=== PATIENT | female | born 1995 ===

== ENCOUNTER 2021-10-24 20:42 | Inpatient (IN) | payer MEDICAID, SELFPAY ==
--- NOTE | ~2021-10-24 | CT_ITS ---
EXAMINATION: CT HEAD WITHOUT CONTRAST CLINICAL INFORMATION: First psychotic episode. COMPARISON: No relevant prior imaging. TECHNIQUE: Contiguous axial imaging was performed from the skull base to vertex without intravenous administration of contrast. This CT examination was performed using dose optimization techniques as appropriate, variously including the following: *Automated exposure control *Adjustment of mA and/or kV according to patient size (this includes techniques or standardized protocols for targeted exams where dose is matched to indication/reason for exam; i.e. extremities or head) *Use of iterative reconstruction technique DLP: 572 mGy-cm FINDINGS: There is no acute intracranial hemorrhage or abnormal extra-axial collection. No intracranial mass effect or midline shift. Lateral and third ventricles are normal. No hydrocephalus. Gtz-white matter differentiation is preserved and there is no evidence of acute territorial infarct. The calvarium and skull base are intact. Mastoid air cells and middle ear cavities are well aerated. No active paranasal sinus disease. CT/CT head/brain wo con IMPRESSION: Normal CT scan of the head.
[2021-10-24 21:10] VITALS: BP 118/73; PULSE 100; RESP 16; TEMP 36.7; O2SAT 98
[2021-10-24] MEDS: hydrOXYzine HCL 25 MG TABLET PO (23:04)
[2021-10-24 23:15] VITALS: BMI 19.7
[2021-10-25] MEDS: traZODone HCL 50 MG TABLET PO (01:38)
--- NOTE | 2021-10-25 02:14 | PC.ADMIT ---
Pt is a 26 year old female admitted to the unit after referral from N at [facility]. Arrived on unit at 2057. Legal status: CV, later signed a 3 day notice which will be up on Friday10/29/20. Medical issues: psoriasis, for which she receives an injection every 3 months (Skyrizi), and a j-pouch which was performed when she was 16 years old for ulcerative colitis. Substance use: pt reports marijuana use, last used 10/19, and infrequent alcohol use. Precipitant, per crisis report: Pt was a walk-in to the ED for symptoms of pressured, tangential speech and disoragnized thinking, as well as paranoia and persecutory delusions. She reportedly also made hypersexualized comments and attempted to elope from the ED multiple times. Pt made paranoid statements, such as that unidentified people would harm her while she is in the hospital and also beliefs that her family was conspiring against her. Pt reported auditory hallucinations all the time and having intrusive thoughts that she could not control . Per pt's mother, there is not prior history of psychosis. Per pt: At the time of admission assessment, pt states that she believes she may have had her first manic episode . She reports having COVID at the beginning of the month, approx. 09/26/21, and felt that she was in a brain fog during that time, then felt ok. She reports not being able to sleep for the last week. Pt states that she freaked out [place] morning, and then does not remember anything , including going to the hospital. She remembers having delusional thoughts, such as that she caused a COVID outbreak and started the omnicron variant. She remembers having auditory hallucinations, but states that was only while she was in the hospital, and although she could understand what they said they didn't make any sense . Pt states that she started feeling better yesterday and feels fine now, though feels tired due to lack of sleep. Pt reports that she has always struggled with anxiety, and has wondered if she should be on medication for it. She denies disturbance in appetite. Denies suicidal thoughts currently or prior to admission. She reports living in [place] where she goes to school, but has been staying with her parents during the holidays; states that she was supposed to go back to [place] today (10/24). During admission assessment pt presents slightly anxious, appears tired, is alert and oriented x4. Her thought process seems logical and linear, she is pleasant and cooperative throughout assessment. She denies any auditory or visual hallucinations at this time, no apparent signs of psychosis. Denies SI/HI. Nurse to nurse completed prior to admission. Treatment plan initiated. Grace Moctezuma APRN notified of admission and orders obtained. Pt placed on 15 minute safety checks, contracts for unit safety and will seek out staff if necessary. Medications: Pt is on a monthly B12 injection, last received 10/18/21. She is also on Skyrizi every 3 months and believes that she might be approx. one month late for the injection. She reports recently having bloodwork done in [place] which was needed in order to refill injection. Pt also reports taking a probiotic and vitamin D daily.
[2021-10-25 07:00] VITALS: BMI 20.2
--- NOTE | 2021-10-25 08:57 | P.CONHOSP_ITS ---
History of Present Illness Data of Consult Service Date: 10/25/21 Primary Care Provider: Unknown Physician HPI Reason for consult: Medical evaluation and management. 26-year-old female with history of ulcerative colitis status post an internal J pouch, she is in remission, h/o psoriasis on Skyrizi every 3 months. She is presently admitted for managment of depression. She has no acute medical issues at this time. She has no covid symptoms, she had covid 1 a week after she got her booster vaccine. She voiced no sucidal ideation. Review of Systems Review of Systems: Gen: no fever Resp: no sob, no cough CV: no chest, no HUGGINS, no leg edema GI: No n/v, no abd pain Neuro: No confusion Yes all other systems are reviewed and are negative [facility] Medical History (Updated 10/25/21 @ 09:04 by Ronak Viramontes MD) Intestinal anastomosis present Psoriasis Pertinent family history: She offer no known family illnesses Social History Household Members: Other Household Members Other:: has apartment in [place] where she goes to school Housing: Apartment Housing Other:: has been staying with family during holidays Do you presently have visiting nurse or other home services: No Patient Tobacco Use Status: Never used Tobacco Use of substances other than those prescribed or required for medical reasons: Yes Substance Use Type: Marijuana Substance Use Frequency: Weekly Last Used Substance: Just Prior to Admission Last Used Substance Other:: last used 10/19/21 Currently Displaying Signs/Symptoms of Drug Intoxication Withdrawal: No Any prior treatment program specific to substance use: No Have you been hit, kicked, punched, or otherwise hurt by someone within the past year? If so, by whom?: No Do you feel safe in your current relationship?: No Current Relationship Is there a partner from a previous relationship who is making you feel unsafe now?: No Are you made to feel afraid or neglected: No Spiritual Healthcare Practices: none identified Tenriism Healthcare Practices: none identified Cultural Healthcare Practices: none identified Advance Directives: No Advance Directives Information Provided: Yes Do you have thoughts of harming others: None Do you have a plan to hurt others: No Plan Recently lost weight without trying: No Eating poorly because of decreased appetite: No Nutrition Risks: No Nutritional Risk Patient : No : No Poor oral hygiene: No Meds Allergies Allergy/AdvReac Type Severity Reaction Status Date / Time No Known Allergies Allergy Unverified 10/24/21 21:10 Active Medications: Current Medications Acetaminophen (Acetaminophen 325 Mg Tablet) 650 mg PO Q6H PRN PRN Reason: Headache/Pain Mild Scale (1-3) Al Hydroxide/Mg Hydroxide (Magnesium Hydrox/Alum Hydrox 30 Ml Oral.Susp) 30 ml PO Q6H PRN PRN Reason: Heartburn/Nausea Hydroxyzine HCl (Hydroxyzine Hcl 25 Mg Tablet) 25 mg PO BEDTIME PRN PRN Reason: Anxiety Last Admin: 10/24/21 23:04 Dose: 25 mg Documented by: Magnesium Hydroxide (Milk Of Magnesia 30 Ml Oral.Susp) 30 ml PO DAILY PRN PRN Reason: Constipation Nicotine Polacrilex (Nicotine Polacrilex 2 Mg Gum) 2 mg BUCCAL Q2H PRN PRN Reason: Nicotine Cravings Trazodone HCl (Trazodone Hcl 50 Mg Tablet) 50 mg PO BEDTIME PRN PRN Reason: Insomnia Last Admin: 10/25/21 01:38 Dose: 50 mg Documented by: Physical Exam Vital Signs and Narrative: Vital Signs: Last Vital Signs Temp 98.0 F 10/24/21 21:10 Pulse 100 10/24/21 21:10 Resp 16 10/24/21 21:10 BP 118/73 10/24/21 21:10 Pulse Ox 98 10/24/21 21:10 BMI result Body Mass Index 19.7 Const: Other: Constitutional: Alert, in no distress, thin Mental Status: Oriented to person, place and time. Respiratory: Clear to auscultation. No wheezing, rales or rhonchi. Cardiovascular: S1 S2 regular. No murmurs, rubs or gallops. Gastrointestinal: normal exam Neurologic: Cranial nerves II-XII grossly intact. No focal neurological def icits. Moves all extremities spontaneously.? Skin: No rashes or lesions.? Musculoskeletal: No cyanosis or clubbing. Psychiatric: Normal mood and affect? Assessment and Plan (1) Depression: Status: Acute 26-year-old female with ulcerative colitis that is in remission, psoriasis that is well controlled. Presently admitted to inpatient psych for depression management. She has no acute medical issues. Plan/recommendation: Continue present care of pharmacological and behavior management. Please call for any new issues. Thanks
--- NOTE | 2021-10-25 09:27 | P.HPPS_ITS ---
Documented by User: Marizol Navarro 10/25/21 14:05 HPI Date of Service: 10/25/21 Chief Complaint: Bipolar I d/o, current or most recent episode with Sources of Information: patient interviewed, chart reviewed and crisis/core team assessment reviewed Additional Sources of Information: [facility]eris [facility] Subjective Notes: Lemons Warning (understands) and 3 Day Narrative: Ms. Howell is a 26 year-old with no prior psychiatric hx other than anxiety who was brought to [facility] by her mother due to pt presenting as increasingly more disorganized, reporting some paranoid delusions towards family, not sleeping. Per [facility] records, pt presented as paranoid, did talk about reassuring others that Glory was not child molester, that she thought her family were against her. In the ED, her utox was positive for cannabis. All other labs including CBC, CMP were unremarkable. On the unit, pt presents as anxious, but much more organized than how she was described in ED. Pt reports she notes in past several weeks she had believed that she was in a reality show about success. She reports not sleeping thinking she could if she did. She reports most of memories of past weeks are very vague. She reports she was hearing voices but couldn't make what they were saying. Pt reports she came from [place], [place] 10/22 to visit family in [facility]. She states even before coming she was not sleeping well and was already thinking she was in a reality show. Pt currently denies AH/VH. She reports feeling confused about what is going on with her. Pt denies previous episode of psychosis. pt denies previous episodes of increased energy, decreased need for sleep, grandiose, psychosis or delusional thinking. She reports having hx of anxiety for which she is receiving outpatient psychotherapy. Pt denies hx of suicidal ideation or homicidal ideation. Per mother, no prior hx f psychosis. Mother reports changes in behavior for the past 2 weeks or more. Mother reports pt presented as paranoid towards family members, not sleeping, poor memory unable to recognize people she had met in past. Mother reports pt has gone through surgical procedures due to ulcerative colitis early on in her life which was difficult for pt. Mother reports that as far as she is aware no hx of suicide attempts. Past Psychiatric History: Inpatient: none OP: therapist in [place] Past medication trials: ativan Suicide attempts: none Medical Evaluation Reviewed: Hospitalist Roya Pending reviewed records sent from [facility]- including CBC (unremarkable), CMP (unremarkable), utox (positive for cannabinoids) pending hospitalist H&P. PMH of ulcerative colitis status post garcía colectomy w/j pouch/ PMFSH Medical History (Updated 10/25/21 @ 13:58 by Marizol Navarro) Intestinal anastomosis present Psoriasis Family History: mother- depression Social History: Parents when pt was in middle school. Pt has younger brother. She moved to [place] for school back in 2012. She reports having close relationship with both parents. Not , no children. works as [employer]. Substance History: reports weekly use of cannabis for some years. She reports drinking socially. She denies any other substance use. Trauma History: reports multiple medical interventions due to ulcerative colitis was traumatic for her. Diagnostics Vital Signs (24Hr): Vital Signs - 24 hr 10/24/21 21:10 Temperature 98.0 F Pulse Rate 100 Respiratory Rate 16 Blood Pressure 118/73 Pulse Oximetry 98 BMI result Body Mass Index 19.7 Labs Labs: Laboratory Results - last 48 hr 10/25/21 10/25/21 10/25/21 11:23 11:23 11:23 Estimat Average Glucose 97 Hemoglobin A1c % 5.0 Triglycerides 83 Cholesterol 151 LDL Cholesterol, Calc 82 HDL Cholesterol 53 Vitamin B12 522 Folate 17.2 TSH 0.42 Meds/Allergies Meds Home Medications Acetaminophen (Acetaminophen 325 Mg Tablet) 650 mg PO Q6H PRN PRN Reason: Headache/Pain Mild Scale (1-3) Last Admin: 10/25/21 21:13 Dose: 650 mg Documented by: Al Hydroxide/Mg Hydroxide (Magnesium Hydrox/Alum Hydrox 30 Ml Oral.Susp) 30 ml PO Q6H PRN PRN Reason: Heartburn/Nausea Hydroxyzine HCl (Hydroxyzine Hcl 25 Mg Tablet) 25 mg PO BEDTIME PRN PRN Reason: Anxiety Last Admin: 10/26/21 00:26 Dose: 25 mg Documented by: Lorazepam (Lorazepam 1 Mg Tablet) 1 mg PO Q4H PRN PRN Reason: Anxiety Last Admin: 10/25/21 23:03 Dose: 1 mg Documented by: Magnesium Hydroxide (Milk Of Magnesia 30 Ml Oral.Susp) 30 ml PO DAILY PRN PRN Reason: Constipation Nicotine Polacrilex (Nicotine Polacrilex 2 Mg Gum) 2 mg BUCCAL Q2H PRN PRN Reason: Nicotine Cravings Risperidone (Risperidone 0.5 Mg Tablet) 0.5 mg PO BID DEVAN Last Admin: 10/26/21 09:06 Dose: 0.5 mg Documented by: Trazodone HCl (Trazodone Hcl 50 Mg Tablet) 50 mg PO BEDTIME PRN PRN Reason: Insomnia Last Admin: 10/26/21 00:25 Dose: 50 mg Documented by: Allergies Allergies Allergy/AdvReac Type Severity Reaction Status Date / Time No Known Allergies Allergy Unverified 10/24/21 21:10 Mental Status Exam Mental Status Exam Narrative: Appearance: thin, casually groomed, fair hygiene in NAD Behavior:cooperative, anxious psychomotor:no agitation or retardation noted Speech:clear, normal rate/rhythm/volume, spontaneous Thought process:mostly linear, no loose associations Thought content:no overt psychosis, worried about recent episode, confused but open to received treatment Mood: good Affect: slightly expensive at times, more withdrawn towards the end SI:none HI:none VH/AH:reports not anymore Delusions:no overt delusional content, but reports thinking she was in reality show Insight/judgment:improving x 2. Memory/cog: alert, oriented x 3. grossly intact to conversational testing but not formally tested. Assessment & Plan Assessment & Plan (1) Psychosis: Status: Acute Code(s): F29 - Unspecified psychosis not due to a substance or known physiological condition Assessment and Plan: Ms. Howell is a 26 year-old woman without psychiatric hx who was brought to [facility] ED due to new onset of paranoid, grandiose delusions of being in reality show, being successful, not sleeping. Utox positive for cannabinoids. Differential diagnosis include first manic episode in Bipolar type 1 Disorder, cannabis induced psychosis or less likely pt recently dx with covid (some cases reported of post covid psychosis). We discussed risks, benefits and alternative treatment options. pt agreed to start low dose of risperidone. PLAN 1. Admit to [facility], 3 day notice, 15 minutes checks for safety 2. Start risperidone 0.5mg po BID, PRN ativan for anxiety. 3. Obtain collateral information 4. Aftercare planning. Reason for continued inpatient stay Substantial Risk for: inability to function Documented by User: Cornelio Eric MD 10/26/21 14:16 HPI Chief Complaint: Bipolar I d/o, current or most recent episode with [facility] Medical History (Updated 10/25/21 @ 13:58 by Marizol Navarro) Intestinal anastomosis present Psoriasis Meds/Allergies Meds Home Medications Acetaminophen (Acetaminophen 325 Mg Tablet) 650 mg PO Q6H PRN PRN Reason: Headache/Pain Mild Scale (1-3) Last Admin: 10/25/21 21:13 Dose: 650 mg Documented by: Al Hydroxide/Mg Hydroxide (Magnesium Hydrox/Alum Hydrox 30 Ml Oral.Susp) 30 ml PO Q6H PRN PRN Reason: Heartburn/Nausea Hydroxyzine HCl (Hydroxyzine Hcl 25 Mg Tablet) 25 mg PO BEDTIME PRN PRN Reason: Anxiety Last Admin: 10/26/21 00:26 Dose: 25 mg Documented by: Lorazepam (Lorazepam 1 Mg Tablet) 1 mg PO Q4H PRN PRN Reason: Anxiety Last Admin: 10/25/21 23:03 Dose: 1 mg Documented by: Magnesium Hydroxide (Milk Of Magnesia 30 Ml Oral.Susp) 30 ml PO DAILY PRN PRN Reason: Constipation Nicotine Polacrilex (Nicotine Polacrilex 2 Mg Gum) 2 mg BUCCAL Q2H PRN PRN Reason: Nicotine Cravings Risperidone (Risperidone 0.5 Mg Tablet) 0.5 mg PO BID DEVAN Last Admin: 10/26/21 09:06 Dose: 0.5 mg Documented by: Trazodone HCl (Trazodone Hcl 50 Mg Tablet) 50 mg PO BEDTIME PRN PRN Reason: Insomnia Last Admin: 10/26/21 00:25 Dose: 50 mg Documented by: Allergies Allergies Allergy/AdvReac Type Severity Reaction Status Date / Time No Known Allergies Allergy Unverified 10/24/21 21:10 Assessment & Plan Assessment & Plan (1) Psychosis: Status: Acute Code(s): F29 - Unspecified psychosis not due to a substance or known physiological condition
[2021-10-25 11:00] VITALS: BP 124/77; PULSE 111; RESP 16; TEMP 36.6; O2SAT 96
[2021-10-25 11:46] LABS: Estimated Average Glucose 97 mg/dL
[2021-10-25 11:47] LABS: Cholesterol 151 mg/dL; HDL Cholesterol 53 mg/dL; LDL Cholesterol Calculated 82 mg/dl; Triglycerides 83 mg/dL
[2021-10-25 12:09] LABS: TSH reflex Free T4 0.42 uIU/mL (0.32-4.0)
[2021-10-25 12:26] LABS: Folate 17.2 ng/mL (> or = 4.0); Vitamin B12 522 pg/mL (200-900)
[2021-10-25] MEDS: risperiDONE 0.5 MG TABLET PO ×2 (12:34→22:00)
--- NOTE | 2021-10-25 12:35 | HO.PSYCHPN ---
Subjective Subjective Date of Service: 10/25/21 Reason For Visit: Bipolar I d/o, current or most recent episode with Subjective Notes: Conditional Voluntary Interim History: Ms. Howell is a 26 year-old with no prior psychiatric hx other than anxiety who was brought to [facility] by her mother due to pt presenting as increasingly more disorganized, reporting some paranoid delusions towards family, not sleeping. Per [facility] records, pt presented as paranoid, did talk about reassuring others that Glory was not child molester, that she thought her family were against her. In the ED, her utox was positive for cannabis. All other labs including CBC, CMP were unremarkable. On the unit, pt presents as anxious, but much more organized. Pt reports she notes in past several weeks she had believed that she was in a reality show about success. She reports not sleeping thinking she could if she did. She reports most of memories of past weeks is very vague. She reports she was hearing voices but couldn't make what they were saying. Pt reports she came from [place], [place] 10/22 to visit family in [facility]. She states even before coming she was not sleeping well and was already thinking she was in a reality show. Pt denies previous episode of psychosis. She reports having hx of anxiety for which she is receiving Diagnostics Vital Signs (24Hr): Vital Signs - 24 hr 10/24/21 21:10 Temperature 98.0 F Pulse Rate 100 Respiratory Rate 16 Blood Pressure 118/73 Pulse Oximetry 98 BMI result Body Mass Index 19.7 Labs Labs: Laboratory Results - last 48 hr 10/25/21 10/25/21 10/25/21 11:23 11:23 11:23 Estimat Average Glucose 97 Hemoglobin A1c % 5.0 Triglycerides 83 Cholesterol 151 LDL Cholesterol, Calc 82 HDL Cholesterol 53 Vitamin B12 522 Folate 17.2 TSH 0.42 Medications Medications Current Medications Acetaminophen (Acetaminophen 325 Mg Tablet) 650 mg PO Q6H PRN PRN Reason: Headache/Pain Mild Scale (1-3) Al Hydroxide/Mg Hydroxide (Magnesium Hydrox/Alum Hydrox 30 Ml Oral.Susp) 30 ml PO Q6H PRN PRN Reason: Heartburn/Nausea Hydroxyzine HCl (Hydroxyzine Hcl 25 Mg Tablet) 25 mg PO BEDTIME PRN PRN Reason: Anxiety Last Admin: 10/24/21 23:04 Dose: 25 mg Documented by: Lorazepam (Lorazepam 1 Mg Tablet) 1 mg PO Q4H PRN PRN Reason: Anxiety Magnesium Hydroxide (Milk Of Magnesia 30 Ml Oral.Susp) 30 ml PO DAILY PRN PRN Reason: Constipation Nicotine Polacrilex (Nicotine Polacrilex 2 Mg Gum) 2 mg BUCCAL Q2H PRN PRN Reason: Nicotine Cravings Risperidone (Risperidone 0.5 Mg Tablet) 0.5 mg PO BID DEVAN Last Admin: 10/25/21 12:34 Dose: 0.5 mg Documented by: Trazodone HCl (Trazodone Hcl 50 Mg Tablet) 50 mg PO BEDTIME PRN PRN Reason: Insomnia Last Admin: 10/25/21 01:38 Dose: 50 mg Documented by: Allergies Allergies Allergy/AdvReac Type Severity Reaction Status Date / Time No Known Allergies Allergy Unverified 10/24/21 21:10 Assessment & Plan Assessment & Plan (1) Depression: Status: Acute Code(s): F32.A - Depression, unspecified Assessment and Plan: 26-year-old female with ulcerative colitis that is in remission, psoriasis that is well controlled. Presently admitted to inpatient psych for depression management. She has no acute medical issues. Plan/recommendation: Continue present care of pharmacological and behavior management. Please call for any new issues. Thanks I spent minutes with the patient and/or on the patient floor today, greater than?50% of which was spent counseling/coordinating care.
[2021-10-25 16:20] LABS: Erythrocyte Sedimentation Rate 2 MM/HR (0-20)
[2021-10-25] MEDS: Acetaminophen 325 MG TABLET 650 MG PO (21:13)
[2021-10-25 22:01] VITALS: BP 116/71; PULSE 94; TEMP 36.7; O2SAT 99
[2021-10-25] MEDS: LORazepam 1 MG TABLET PO (23:03)
[2021-10-26] MEDS: traZODone HCL 50 MG TABLET PO (00:25)
[2021-10-26] MEDS: hydrOXYzine HCL 25 MG TABLET PO (00:26)
[2021-10-26 05:02] LABS: Lyme Abs Screen <0.90 index
[2021-10-26 08:40] LABS: Syphilis Screen Nonreactive (Nonreactive)
[2021-10-26] MEDS: risperiDONE 0.5 MG TABLET PO ×2 (09:06→22:34)
[2021-10-26 09:13] VITALS: BP 112/72; PULSE 109; RESP 17; TEMP 36.9; O2SAT 95
[2021-10-26 21:15] VITALS: BP 112/70; PULSE 96; RESP 16; TEMP 36.7; O2SAT 99
--- NOTE | 2021-10-26 22:02 | P.PNPSI_ITS ---
Subjective Subjective Date of Service: 10/26/21 Reason For Visit: Bipolar I d/o, current or most recent episode with Subjective Notes: Conditional Voluntary Healthcare Proxy: No Guardianship: No Interim History: Patient case reviewed with nursing staff patient seen. Patient gives history of ulcerative colitis with colectomy history of psoriasis. Describes recent elevated mood decreased need for sleep and delusional material over the past 2 weeks thinking somehow she may have been replaced and other times her family may have been replaced. Denies history of gustabo denies history prior psychotic episodes Medication Compliance: Yes Side effects from medications: No Review of Systems Acute medical concerns: No Mental Status Exam Mental Status Exam Narrative: Patient inappropriate smiles speech clear goal-directed generally logical mood anxious somewhat perplexed describes delusional material related to thinking that somehow she has and reality show also bizarre thinking regarding her family may be being replaced Impulse control intact no active SI or HI Diagnostics Vital Signs (24Hr): Vital Signs - 24 hr 10/26/21 09:13 10/26/21 21:15 Temperature 98.4 F 98.0 F Pulse Rate 109 H 96 Respiratory Rate 17 16 Blood Pressure 112/72 112/70 Pulse Oximetry 95 99 BMI result Body Mass Index 20.2 Labs Labs: Laboratory Results - last 48 hr 10/25/21 10/25/21 10/25/21 11:23 11:23 11:23 ESR Estimat Average Glucose 97 Hemoglobin A1c % 5.0 Triglycerides 83 Cholesterol 151 LDL Cholesterol, Calc 82 HDL Cholesterol 53 Vitamin B12 522 Folate 17.2 TSH 0.42 T.pallidum Ab (EIA) Lyme Screen IgG & IgM 10/25/21 10/25/21 10/25/21 15:31 15:31 15:31 ESR 2 Estimat Average Glucose Hemoglobin A1c % Triglycerides Cholesterol LDL Cholesterol, Calc HDL Cholesterol Vitamin B12 Folate TSH T.pallidum Ab (EIA) Nonreactive Lyme Screen IgG & IgM <0.90 Imaging Radiology Impressions: ITS Impressions Head CT 10/25/21 14:36 IMPRESSION: Normal CT scan of the head. Medications Medications Current Medications Acetaminophen (Acetaminophen 325 Mg Tablet) 650 mg PO Q6H PRN PRN Reason: Headache/Pain Mild Scale (1-3) Last Admin: 10/25/21 21:13 Dose: 650 mg Documented by: Al Hydroxide/Mg Hydroxide (Magnesium Hydrox/Alum Hydrox 30 Ml Oral.Susp) 30 ml PO Q6H PRN PRN Reason: Heartburn/Nausea Hydroxyzine HCl (Hydroxyzine Hcl 25 Mg Tablet) 25 mg PO BEDTIME PRN PRN Reason: Anxiety Last Admin: 10/26/21 00:26 Dose: 25 mg Documented by: Lorazepam (Lorazepam 1 Mg Tablet) 1 mg PO Q4H PRN PRN Reason: Anxiety Last Admin: 10/25/21 23:03 Dose: 1 mg Documented by: Magnesium Hydroxide (Milk Of Magnesia 30 Ml Oral.Susp) 30 ml PO DAILY PRN PRN Reason: Constipation Nicotine Polacrilex (Nicotine Polacrilex 2 Mg Gum) 2 mg BUCCAL Q2H PRN PRN Reason: Nicotine Cravings Non-Formulary Medication (Culturelle) 1 tab-cap PO DAILY DEVAN Nystatin (Nystatin Cream 15 Gm Tube) 1 appl TOPICAL BID PRN; Protocol PRN Reason: Itching irritation around j p Risperidone (Risperidone 0.5 Mg Tablet) 0.5 mg PO BID DEVAN Last Admin: 10/26/21 09:06 Dose: 0.5 mg Documented by: Trazodone HCl (Trazodone Hcl 50 Mg Tablet) 50 mg PO BEDTIME PRN PRN Reason: Insomnia Last Admin: 10/26/21 00:25 Dose: 50 mg Documented by: Allergies Allergies Allergy/AdvReac Type Severity Reaction Status Date / Time No Known Allergies Allergy Unverified 10/24/21 21:10 Assessment & Plan Assessment & Plan (1) Psychosis: Status: Acute Code(s): F29 - Unspecified psychosis not due to a substance or known physiological condition Assessment and Plan: Ms. Howell is a 26 year-old woman without psychiatric hx who was brought to [facility] ED due to new onset of paranoid, grandiose delusions of being in reality show, being successful, not sleeping. Utox positive for cannabinoids. Differential diagnosis include first manic episode in Bipolar type 1 Disorder, cannabis induced psychosis or less likely pt recently dx with covid (some cases reported of post covid psychosis). We discussed risks, benefits and alternative treatment options. pt agreed to start low dose of risperidone. 10/26/2021 Patient on Risperdal improved improved concentration attention less psychotic preoccupation monitor for bipolar disorder I spent minutes with the patient and/or on the patient floor today, greater than?50% of which was spent counseling/coordinating care. Reason for contiued inpatient stay Substantial Risk for: inability to function and rapid decompensation
[2021-10-26] MEDS: Nystatin Ointment 15 GM TUBE 1 APPL TOPICAL (22:35)
[2021-10-27] MEDS: hydrOXYzine HCL 25 MG TABLET PO (00:11)
[2021-10-27] MEDS: traZODone HCL 50 MG TABLET PO ×2 (00:11→22:54)
[2021-10-27] MEDS: LORazepam 1 MG TABLET PO ×2 (01:20→22:23)
[2021-10-27 08:24] VITALS: BP 110/73; PULSE 90; RESP 16; TEMP 36.6; O2SAT 97
[2021-10-27] MEDS: risperiDONE 0.5 MG TABLET PO (08:32)
--- NOTE | 2021-10-27 11:29 | PC.NURSE ---
Patient retracted release of information for her mother and father. Patient stated i am feeling smothered by my mother. I am lucid now and will give them the information as I want to give it .
--- NOTE | 2021-10-27 16:31 | PC.NURSE ---
Received call from patients mothers insisting on obtaining information regarding patient. Patient recinded consent earlier in day however mother insisting permission has been obtained to speak with her. Mother angry she had been transferred to patient phone several times. Mother took this writers name and credentials stating she has worked in education and was aware of HIPPA and confidentiality laws. Mother raising voice at this typewriter repairer, challenging ability to disclose information. Informed mother this typewriter repairer was going to terminate the phone call as she was increasingly challenging. Mother requested she speak to Dr. Jeaneth GRUBBS notified via text.
[2021-10-27 18:00] VITALS: BP 118/68; PULSE 104; RESP 14; TEMP 36.7; O2SAT 99
--- NOTE | 2021-10-27 18:36 | PC.NURSE ---
Patient signed release of Information for mother and father with MD at 17:10.
--- NOTE | 2021-10-27 18:38 | PC.ADMIT ---
Patient retracted 3 day notice that was signed on 10/24/2021. Patient signed new 3 day notice today (10/27/2021).
--- NOTE | 2021-10-27 19:09 | HO.PSYCHPN ---
Subjective Subjective Date of Service: 10/27/21 Reason For Visit: Bipolar I d/o, current or most recent episode with Subjective Notes: Lemons Warning, Conditional Voluntary and 3 Day Interim History: Gradually improving psychotic process continues to need much reassurance no complaints of side effects Medication Compliance: Yes Mental Status Exam Mental Status Exam Patient Appearance: Well Grooomed Level of Consciousness: Awake Patient Behavior: Appropriate, Passive and Anxious Mood Description: Anxious and Apprehensive Affect Description: Anxious, Labile (Some periods of intense despair when feeling that somehow she is doing something wrong to others) and Apprehensive Speech Pattern: Clear Memory Description: Intact Delusions: Present and Ideas of Reference Thought Content: positive for Preoccupation, negative for Suicidal Ideation or positive for Homicidal Ideation Depressive Symptoms: Increased Anxiety Judgement: Fair Judgement and Insight: Some ideas of reference starting to challenge delusional thinking remains anxious ruminating fear of somehow hurting other people response to reassurance Diagnostics Vital Signs (24Hr): Vital Signs - 24 hr 10/28/21 06:00 10/28/21 18:00 Temperature 98.1 F Pulse Rate 108 H 101 H Respiratory Rate 16 18 Blood Pressure 108/75 118/72 Pulse Oximetry 96 99 BMI result Body Mass Index 20.2 Labs Labs: Laboratory Results - last 48 hr 10/25/21 10/25/21 15:31 15:31 HA Screen NEGATIVE Lyme Progressive Test TNP Imaging Radiology Impressions: ITS Impressions Head CT 10/25/21 14:36 IMPRESSION: Normal CT scan of the head. Medications Medications Current Medications Acetaminophen (Acetaminophen 325 Mg Tablet) 650 mg PO Q6H PRN PRN Reason: Headache/Pain Mild Scale (1-3) Last Admin: 10/25/21 21:13 Dose: 650 mg Documented by: Al Hydroxide/Mg Hydroxide (Magnesium Hydrox/Alum Hydrox 30 Ml Oral.Susp) 30 ml PO Q6H PRN PRN Reason: Heartburn/Nausea Hydroxyzine HCl (Hydroxyzine Hcl 25 Mg Tablet) 25 mg PO BEDTIME PRN PRN Reason: Anxiety Last Admin: 10/27/21 00:11 Dose: 25 mg Documented by: Lorazepam (Lorazepam 1 Mg Tablet) 1 mg PO Q4H PRN PRN Reason: Anxiety Last Admin: 10/27/21 22:23 Dose: 1 mg Documented by: Magnesium Hydroxide (Milk Of Magnesia 30 Ml Oral.Susp) 30 ml PO DAILY PRN PRN Reason: Constipation Nicotine Polacrilex (Nicotine Polacrilex 2 Mg Gum) 2 mg BUCCAL Q2H PRN PRN Reason: Nicotine Cravings Non-Formulary Medication (Culturelle) 1 tab-cap PO DAILY [facility] Last Admin: 10/28/21 09:34 Dose: 1 tab-cap Documented by: Nystatin (Nystatin Ointment 15 Gm Tube) 1 appl TOPICAL BID PRN; Protocol PRN Reason: Itching Last Admin: 10/28/21 21:57 Dose: 1 appl Documented by: Risperidone (Risperidone 1 Mg Tablet) 1 mg PO BID [facility] Last Admin: 10/28/21 21:32 Dose: 1 mg Documented by: Trazodone HCl (Trazodone Hcl 50 Mg Tablet) 50 mg PO BEDTIME PRN PRN Reason: Insomnia Last Admin: 10/28/21 21:32 Dose: 50 mg Documented by: Allergies Allergies Allergy/AdvReac Type Severity Reaction Status Date / Time No Known Allergies Allergy Unverified 10/24/21 21:10 Assessment & Plan Assessment & Plan (1) Psychosis: Status: Acute Code(s): F29 - Unspecified psychosis not due to a substance or known physiological condition Assessment and Plan: Ms. Howell is a 26 year-old woman without psychiatric hx who was brought to [facility] ED due to new onset of paranoid, grandiose delusions of being in reality show, being successful, not sleeping. Utox positive for cannabinoids. Differential diagnosis include first manic episode in Bipolar type 1 Disorder, cannabis induced psychosis or less likely pt recently dx with covid (some cases reported of post covid psychosis). We discussed risks, benefits and alternative treatment options. pt agreed to start low dose of risperidone. 10/26/2021 Patient on Risperdal improved improved concentration attention less psychotic preoccupation monitor for bipolar disorder 10/27/2020 Increase Risperdal to 1 mg p.o. biD Needs much reassurance regarding psychotic thought process and reality testing Discussed need for ongoing treatment possible COVID induced psychosis case reviewed with nursing staff chart reviewed patient seen I spent minutes with the patient and/or on the patient floor today, greater than?50% of which was spent counseling/coordinating care. Reason for contiued inpatient stay Substantial Risk for: inability to function and rapid decompensation
[2021-10-27] MEDS: risperiDONE 1 MG TABLET PO (20:41)
--- NOTE | 2021-10-27 23:07 | P.PNPSI_ITS ---
Subjective Subjective Date of Service: 10/27/21 Reason For Visit: Bipolar I d/o, current or most recent episode with Subjective Notes: Conditional Voluntary and 3 Day Healthcare Proxy: No Guardianship: No Medical Problems Affecting Mental Status: Yes (Recent COVID infection) Interim History: Patient remains anxious ruminating trying to tease out what is real versus what is not real. Had withdrawn consent to speak with mother and father than later in the day agreed to. Had an extensive discussion what the meaning of 3 day is the patient did withdraw 3 day and then put in a no other 3 day. Patient with thoughts that somehow she is guilty Mental Status Exam Mental Status Exam Patient Appearance: Well Grooomed Level of Consciousness: Awake Patient Behavior: Appropriate, Passive and Anxious Mood Description: Anxious and Apprehensive Affect Description: Anxious, Labile (Some periods of intense despair when feeling that somehow she is doing something wrong to others) and Apprehensive Speech Pattern: Clear Memory Description: Intact Delusions: Present and Ideas of Reference Thought Content: positive for Preoccupation, negative for Suicidal Ideation or positive for Homicidal Ideation Depressive Symptoms: Increased Anxiety Judgement: Fair Judgement and Insight: Some ideas of reference starting to challenge delusional thinking remains anxious ruminating fear of somehow hurting other people response to reassurance Diagnostics Vital Signs (24Hr): Vital Signs - 24 hr 10/27/21 08:24 10/27/21 18:00 Temperature 97.8 F 98.0 F Pulse Rate 90 104 H Respiratory Rate 16 14 Blood Pressure 110/73 118/68 Pulse Oximetry 97 99 BMI result Body Mass Index 20.2 Labs Labs: Laboratory Results - last 48 hr 10/25/21 10/25/21 15:31 15:31 T.pallidum Ab (EIA) Nonreactive Lyme Screen IgG & IgM <0.90 Lyme Progressive Test TNP Imaging Radiology Impressions: ITS Impressions Head CT 10/25/21 14:36 IMPRESSION: Normal CT scan of the head. Medications Medications Current Medications Acetaminophen (Acetaminophen 325 Mg Tablet) 650 mg PO Q6H PRN PRN Reason: Headache/Pain Mild Scale (1-3) Last Admin: 10/25/21 21:13 Dose: 650 mg Documented by: Al Hydroxide/Mg Hydroxide (Magnesium Hydrox/Alum Hydrox 30 Ml Oral.Susp) 30 ml PO Q6H PRN PRN Reason: Heartburn/Nausea Hydroxyzine HCl (Hydroxyzine Hcl 25 Mg Tablet) 25 mg PO BEDTIME PRN PRN Reason: Anxiety Last Admin: 10/27/21 00:11 Dose: 25 mg Documented by: Lorazepam (Lorazepam 1 Mg Tablet) 1 mg PO Q4H PRN PRN Reason: Anxiety Last Admin: 10/27/21 22:23 Dose: 1 mg Documented by: Magnesium Hydroxide (Milk Of Magnesia 30 Ml Oral.Susp) 30 ml PO DAILY PRN PRN Reason: Constipation Nicotine Polacrilex (Nicotine Polacrilex 2 Mg Gum) 2 mg BUCCAL Q2H PRN PRN Reason: Nicotine Cravings Non-Formulary Medication (Culturelle) 1 tab-cap PO DAILY [facility] Last Admin: 10/27/21 08:32 Dose: 1 tab-cap Documented by: Nystatin (Nystatin Ointment 15 Gm Tube) 1 appl TOPICAL BID PRN; Protocol PRN Reason: Itching Last Admin: 10/26/21 22:35 Dose: 1 appl Documented by: Risperidone (Risperidone 1 Mg Tablet) 1 mg PO BID [facility] Last Admin: 10/27/21 20:41 Dose: 1 mg Documented by: Trazodone HCl (Trazodone Hcl 50 Mg Tablet) 50 mg PO BEDTIME PRN PRN Reason: Insomnia Last Admin: 10/27/21 22:54 Dose: 50 mg Documented by: Allergies Allergies Allergy/AdvReac Type Severity Reaction Status Date / Time No Known Allergies Allergy Unverified 10/24/21 21:10 Assessment & Plan Assessment & Plan (1) Psychosis: Status: Acute Code(s): F29 - Unspecified psychosis not due to a substance or known physiological condition Assessment and Plan: Ms. Howell is a 26 year-old woman without psychiatric hx who was brought to [facility] ED due to new onset of paranoid, grandiose delusions of being in reality show, being successful, not sleeping. Utox positive for cannabinoids. Differential diagnosis include first manic episode in Bipolar type 1 Disorder, cannabis induced psychosis or less likely pt recently dx with covid (some cases reported of post covid psychosis). We discussed risks, benefits and alternative treatment options. pt agreed to start low dose of risperidone. 10/26/2021 Patient on Risperdal improved improved concentration attention less psychotic preoccupation monitor for bipolar disorder 10/27/2020 Increase Risperdal to 1 mg p.o. biD Needs much reassurance regarding psychotic thought process and reality testing Discussed need for ongoing treatment possible COVID induced psychosis case re viewed with nursing staff chart reviewed patient seen I spent minutes with the patient and/or on the patient floor today, greater than?50% of which was spent counseling/coordinating care. Reason for contiued inpatient stay Substantial Risk for: inability to function and rapid decompensation
[2021-10-28 06:00] VITALS: BP 108/75; PULSE 108; RESP 16; O2SAT 96
[2021-10-28] MEDS: risperiDONE 1 MG TABLET PO ×2 (09:34→21:32)
[2021-10-28 13:05] LABS: Anti Nuclear Antibody Screen NEGATIVE (NEGATIVE)
[2021-10-28 18:00] VITALS: BP 118/72; PULSE 101; RESP 18; TEMP 36.7; O2SAT 99
[2021-10-28] MEDS: traZODone HCL 50 MG TABLET PO ×2 (21:32→23:09)
[2021-10-28] MEDS: Nystatin Ointment 15 GM TUBE 1 APPL TOPICAL (21:57)
[2021-10-28] MEDS: hydrOXYzine HCL 25 MG TABLET PO (23:09)
--- NOTE | 2021-10-28 23:10 | P.PNPSI_ITS ---
Subjective Subjective Date of Service: 10/28/21 Reason For Visit: Bipolar I d/o, current or most recent episode with Subjective Notes: Conditional Voluntary and 3 Day Healthcare Proxy: No Guardianship: No Interim History: Patient somewhat less anxious more organized in thought seems calmer future focused. Responding better to reassurance better able to reality test. No complaints of side effects on Risperdal 1 mg twice a day literature given regarding medication Medication Compliance: Yes Side effects from medications: No Mental Status Exam Mental Status Exam Patient Appearance: Well Grooomed Level of Consciousness: Awake Patient Behavior: Appropriate, Passive and Anxious (Improved) Mood Description: Calm and Anxious Affect Description: Calm, Appropriate and Apprehensive Ability to Follow Directions: Good Speech Pattern: Clear Memory Description: Intact Delusions: Ideas of Reference (Have decreased) Perceptual Disturbances: Derealization Thought Process: Goal Oriented Thought Content: positive for Preoccupation, negative for Suicidal Ideation or negative for Homicidal Ideation Depressive Symptoms: Increased Anxiety Judgement and Insight: Better judgment and insight accepting of treatment able to take in information Diagnostics Vital Signs (24Hr): Vital Signs - 24 hr 10/28/21 06:00 10/28/21 18:00 Temperature 98.1 F Pulse Rate 108 H 101 H Respiratory Rate 16 18 Blood Pressure 108/75 118/72 Pulse Oximetry 96 99 BMI result Body Mass Index 20.2 Labs Labs: Laboratory Results - last 48 hr 10/25/21 10/25/21 15:31 15:31 HA Screen NEGATIVE Lyme Progressive Test TNP Imaging Radiology Impressions: ITS Impressions Head CT 10/25/21 14:36 IMPRESSION: Normal CT scan of the head. Medications Medications Current Medications Acetaminophen (Acetaminophen 325 Mg Tablet) 650 mg PO Q6H PRN PRN Reason: Headache/Pain Mild Scale (1-3) Last Admin: 10/25/21 21:13 Dose: 650 mg Documented by: Al Hydroxide/Mg Hydroxide (Magnesium Hydrox/Alum Hydrox 30 Ml Oral.Susp) 30 ml PO Q6H PRN PRN Reason: Heartburn/Nausea Hydroxyzine HCl (Hydroxyzine Hcl 25 Mg Tablet) 25 mg PO BEDTIME PRN PRN Reason: Anxiety Last Admin: 10/28/21 23:09 Dose: 25 mg Documented by: Lorazepam (Lorazepam 1 Mg Tablet) 1 mg PO Q4H PRN PRN Reason: Anxiety Last Admin: 10/27/21 22:23 Dose: 1 mg Documented by: Magnesium Hydroxide (Milk Of Magnesia 30 Ml Oral.Susp) 30 ml PO DAILY PRN PRN Reason: Constipation Nicotine Polacrilex (Nicotine Polacrilex 2 Mg Gum) 2 mg BUCCAL Q2H PRN PRN Reason: Nicotine Cravings Non-Formulary Medication (Culturelle) 1 tab-cap PO DAILY [facility] Last Admin: 10/28/21 09:34 Dose: 1 tab-cap Documented by: Nystatin (Nystatin Ointment 15 Gm Tube) 1 appl TOPICAL BID PRN; Protocol PRN Reason: Itching Last Admin: 10/28/21 21:57 Dose: 1 appl Documented by: Risperidone (Risperidone 1 Mg Tablet) 1 mg PO BID [facility] Last Admin: 10/28/21 21:32 Dose: 1 mg Documented by: Trazodone HCl (Trazodone Hcl 50 Mg Tablet) 50 mg PO BEDTIME PRN PRN Reason: Insomnia Last Admin: 10/28/21 23:09 Dose: 50 mg Documented by: Allergies Allergies Allergy/AdvReac Type Severity Reaction Status Date / Time No Known Allergies Allergy Unverified 10/24/21 21:10 Assessment & Plan Assessment & Plan (1) Psychosis: Status: Acute Code(s): F29 - Unspecified psychosis not due to a substance or known physiological condition Assessment and Plan: Ms. Howell is a 26 year-old woman without psychiatric hx who was [place] [facility] [place] due to new onset of paranoid, grandiose delusions of being in reality show, being successful, not sleeping. Utox positive for cannabinoids. Differential diagnosis include first manic episode in Bipolar type 1 Disorder, cannabis induced psychosis or less likely pt recently dx with covid (some cases reported of post covid psychosis). We discussed risks, benefits and alternative treatment options. pt agreed to start low dose of risperidone. 10/26/2021 Patient on Risperdal improved improved concentration attention less psychotic preoccupation monitor for bipolar disorder 10/27/2021 Increase Risperdal to 1 mg p.o. biD Needs much reassurance regarding psychotic thought process and reality testing Discussed need for ongoing treatment possible COVID induced psychosis case reviewed with nursing staff chart reviewed patient seen 10/28/2021 Better integrated less preoccupied with psychotic process more reality focused tolerating Risperdal 1 mg p.o. b.i.d. able to discuss discharge planning I spent minutes with the patient and/or on the patient floor today, greater than?50% of which was spent counseling/coordinating care. Patient educated on: diagnosis, medication risk/benefits and medical condition Informed Consent: understands Reason for contiued inpatient stay Substantial Risk for: rapid decompensation
[2021-10-29] MEDS: LORazepam 1 MG TABLET PO (07:58)
[2021-10-29] MEDS: risperiDONE 1 MG TABLET PO ×2 (07:58→21:17)
[2021-10-29 08:00] VITALS: BP 115/76; PULSE 91; TEMP 36.1; O2SAT 100
--- NOTE | 2021-10-29 12:27 | P.PNPSI_ITS ---
Subjective Subjective Date of Service: 10/29/21 Reason For Visit: Bipolar I d/o, current or most recent episode with Subjective Notes: Conditional Voluntary Interim History: Pt somewhat anxious and guarded. She reports over the weekend, she thought family trying to make her seen as if she is sick to keep her here in hospital. She reports some suspiciousness towards family but some insight that she is in fact not doing well and needs to be in hospital. She reports sleeping better. She reports she had some ativan early this morning, as prn but too sedating. Will lower dose of ativan. She denies SI/HI. She reports unit is too loud and feels anxious at times because of this. No behavioral concerns. Review of Systems Review of Systems Yes all other systems are reviewed and are negative Mental Status Exam Mental Status Exam Narrative: Appearance: thin, casually groomed, fair hygiene in NAD Behavior:somewhat guarded psychomotor:no agitation or retardation noted Speech:clear, some delay in response rate, regular rhythm/ soft volume, spontaneous Thought process:mostly linear, no loose associations Thought content:no overt psychosis, worried about recent episode, confused but open to received treatment Mood: sleepy with ativan Affect: congruent, guarded SI:none HI:none VH/AH:appears internally preoccupied Delusions:no overt delusional content, but reports thinking she was in reality show and that mother making her look as she is sick to keep her longer in hospital Insight/judgment:improving x 2. Memory/cog: alert, oriented x 3. grossly intact to conversational testing but not formally tested. Diagnostics Vital Signs (24Hr): Vital Signs - 24 hr 10/28/21 18:00 Temperature 98.1 F Pulse Rate 101 H Respiratory Rate 18 Blood Pressure 118/72 Pulse Oximetry 99 BMI result Body Mass Index 20.2 Labs Labs: Laboratory Results - last 48 hr 10/25/21 15:31 HA Screen NEGATIVE HA Titer TNP HA Titer 2 TNP HA Titer 3 TNP HA Pattern TNP HA Pattern 2 TNP HA Pattern 3 TNP Imaging Radiology Impressions: ITS Impressions Head CT 10/25/21 14:36 IMPRESSION: Normal CT scan of the head. Medications Medications Current Medications Acetaminophen (Acetaminophen 325 Mg Tablet) 650 mg PO Q6H PRN PRN Reason: Headache/Pain Mild Scale (1-3) Last Admin: 12/30/21 21:13 Dose: 650 mg Documented by: Al Hydroxide/Mg Hydroxide (Magnesium Hydrox/Alum Hydrox 30 Ml Oral.Susp) 30 ml PO Q6H PRN PRN Reason: Heartburn/Nausea Hydroxyzine HCl (Hydroxyzine Hcl 25 Mg Tablet) 25 mg PO BEDTIME PRN PRN Reason: Anxiety Last Admin: 10/28/21 23:09 Dose: 25 mg Documented by: Lorazepam (Lorazepam 0.5 Mg Tablet) 0.5 mg PO Q6H PRN PRN Reason: Anxiety Magnesium Hydroxide (Milk Of Magnesia 30 Ml Oral.Susp) 30 ml PO DAILY PRN PRN Reason: Constipation Nicotine Polacrilex (Nicotine Polacrilex 2 Mg Gum) 2 mg BUCCAL Q2H PRN PRN Reason: Nicotine Cravings Non-Formulary Medication (Culturelle) 1 tab-cap PO DAILY [facility] Last Admin: 10/29/21 07:58 Dose: 1 tab-cap Documented by: Nystatin (Nystatin Ointment 15 Gm Tube) 1 appl TOPICAL BID PRN; Protocol PRN Reason: Itching Last Admin: 10/28/21 21:57 Dose: 1 appl Documented by: Risperidone (Risperidone 1 Mg Tablet) 1 mg PO BID [facility] Last Admin: 10/29/21 07:58 Dose: 1 mg Documented by: Trazodone HCl (Trazodone Hcl 50 Mg Tablet) 50 mg PO BEDTIME PRN PRN Reason: Insomnia Last Admin: 10/28/21 23:09 Dose: 50 mg Documented by: Allergies Allergies Allergy/AdvReac Type Severity Reaction Status Date / Time No Known Allergies Allergy Unverified 10/24/21 21:10 Assessment & Plan Assessment & Plan (1) Psychosis: Status: Acute Code(s): F29 - Unspecified psychosis not due to a substance or known physiological condition Assessment and Plan: Ms. Howell is a 26 year-old woman without psychiatric hx who was brought to [facility] ED due to new onset of paranoid, grandiose delusions of being in reality show, being successful, not sleeping. Utox positive for cannabinoids. Differential diagnosis include first manic episode in Bipolar type 1 Disorder, cannabis induced psychosis or less likely pt recently dx with covid (some cases reported of post covid psychosis). We discussed risks, benefits and alternative treatment options. pt agreed to start low dose of risperidone. PLAN: 1. cv, 15 minutes 2. continue risperidone 1mg po BID. 3. coordination of care I spent minutes with the patient and/or on the patient floor today, greater than?50% of which was spent counseling/coordinating care. Reason for contiued inpatient stay Substantial Risk for: inability to function
[2021-10-29 18:00] VITALS: BP 128/78; PULSE 99; RESP 16; TEMP 36.7; O2SAT 99
[2021-10-29 18:21] LABS: CRP High Sensitivity 1.9 mg/L
[2021-10-29] MEDS: hydrOXYzine HCL 25 MG TABLET PO (21:18)
[2021-10-29] MEDS: traZODone HCL 50 MG TABLET PO (22:35)
[2021-10-29] MEDS: LORazepam 0.5 MG TABLET PO (22:35)
[2021-10-30] MEDS: LORazepam 0.5 MG TABLET PO ×2 (04:15→22:34)
[2021-10-30 08:00] VITALS: BP 113/70; PULSE 102; TEMP 36.6; O2SAT 98
[2021-10-30] MEDS: risperiDONE 1 MG TABLET PO ×2 (08:27→20:30)
--- NOTE | 2021-10-30 14:03 | HO.PSYCHPN ---
Subjective Subjective Date of Service: 10/30/21 Reason For Visit: Bipolar I d/o, current or most recent episode with Interim History: Pt less anxious, less fearful. Pt reports feeling more awake, focusing on her treatment. She reports she was intimidated by psychotic peers. She appears less guarded although reports feeling confused about recent events. She denies overt delusions related to thinking that she is on reality show. She denies ideas related to thinking that mother was trying to keep her in hospital. She denies SI/HI. She denies side effects with medications. Medication Compliance: Yes Side effects from medications: No Review of Systems Review of Systems Yes all other systems are reviewed and are negative Mental Status Exam Mental Status Exam Narrative: Appearance: thin, casually groomed, fair hygiene in NAD Behavior:somewhat guarded psychomotor:no agitation or retardation noted Speech:clear, some delay in response rate, regular rhythm/ soft volume, spontaneous Thought process:mostly linear, no loose associations Thought content:no overt psychosis, worried about recent episode, confused but open to received treatment Mood: sleepy with ativan Affect: congruent, guarded SI:none HI:none VH/AH:appears internally preoccupied Delusions:no overt delusional content, but reports thinking she was in reality show and that mother making her look as she is sick to keep her longer in hospital Insight/judgment:improving x 2. Memory/cog: alert, oriented x 3. grossly intact to conversational testing but not formally tested. Diagnostics Vital Signs (24Hr): Vital Signs - 24 hr 10/29/21 18:00 10/30/21 08:00 Temperature 98.0 F 98 F Pulse Rate 99 102 H Respiratory Rate 16 Blood Pressure 128/78 113/70 Pulse Oximetry 99 98 BMI result Body Mass Index 20.2 Labs Labs: Laboratory Results - last 48 hr 10/25/21 10/25/21 15:31 15:31 C-React Prot High Sens 1.9 HA Titer TNP HA Titer 2 TNP HA Titer 3 TNP HA Pattern TNP HA Pattern 2 TNP HA Pattern 3 TNP Imaging Radiology Impressions: ITS Impressions Head CT 10/25/21 14:36 IMPRESSION: Normal CT scan of the head. Medications Medications Current Medications Acetaminophen (Acetaminophen 325 Mg Tablet) 650 mg PO Q6H PRN PRN Reason: Headache/Pain Mild Scale (1-3) Last Admin: 10/25/21 21:13 Dose: 650 mg Documented by: Al Hydroxide/Mg Hydroxide (Magnesium Hydrox/Alum Hydrox 30 Ml Oral.Susp) 30 ml PO Q6H PRN PRN Reason: Heartburn/Nausea Hydroxyzine HCl (Hydroxyzine Hcl 25 Mg Tablet) 25 mg PO BEDTIME PRN PRN Reason: Anxiety Last Admin: 10/29/21 21:18 Dose: 25 mg Documented by: Lorazepam (Lorazepam 0.5 Mg Tablet) 0.5 mg PO Q6H PRN PRN Reason: Anxiety Last Admin: 10/30/21 04:15 Dose: 0.5 mg Documented by: Magnesium Hydroxide (Milk Of Magnesia 30 Ml Oral.Susp) 30 ml PO DAILY PRN PRN Reason: Constipation Nicotine Polacrilex (Nicotine Polacrilex 2 Mg Gum) 2 mg BUCCAL Q2H PRN PRN Reason: Nicotine Cravings Non-Formulary Medication (Culturelle) 1 tab-cap PO DAILY [facility] Last Admin: 10/30/21 09:24 Dose: 1 tab-cap Documented by: Nystatin (Nystatin Ointment 15 Gm Tube) 1 appl TOPICAL BID PRN; Protocol PRN Reason: Itching Last Admin: 10/28/21 21:57 Dose: 1 appl Documented by: Risperidone (Risperidone 1 Mg Tablet) 1 mg PO BID [facility] Last Admin: 10/30/21 08:27 Dose: 1 mg Documented by: Trazodone HCl (Trazodone Hcl 50 Mg Tablet) 50 mg PO BEDTIME PRN PRN Reason: Insomnia Last Admin: 10/29/21 22:35 Dose: 50 mg Documented by: Allergies Allergies Allergy/AdvReac Type Severity Reaction Status Date / Time No Known Allergies Allergy Unverified 10/24/21 21:10 Assessment & Plan Assessment & Plan (1) Psychosis: Status: Acute Code(s): F29 - Unspecified psychosis not due to a substance or known physiological condition Assessment and Plan: Ms. Howell is a 26 year-old woman without psychiatric hx who was brought to [facility] due to new onset of paranoid, grandiose delusions of being in reality show, being successful, not sleeping. Utox positive for cannabinoids. Differential diagnosis include first manic episode in Bipolar type 1 Disorder, cannabis induced psychosis or less likely pt recently dx with covid (some cases reported of post covid psychosis). We discussed risks, benefits and alternative treatment options. pt agreed to start low dose of risperidone. PLAN: 1. cv, 15 minutes 2. continue risperidone 1mg po BID. 3. coordination of care I spent minutes with the patient and/or on the patient floor today, greater than?50% of which was spent counseling/coordinating care. Reason for contiued inpatient stay Substantial Risk for: inability to function
[2021-10-30 20:00] VITALS: BP 117/73; PULSE 98; RESP 16; TEMP 36.5; O2SAT 100
[2021-10-30] MEDS: Nystatin Ointment 15 GM TUBE 1 APPL TOPICAL (20:34)
[2021-10-30] MEDS: traZODone HCL 50 MG TABLET PO (23:43)
[2021-10-30] MEDS: hydrOXYzine HCL 25 MG TABLET PO (23:44)
[2021-10-31 08:17] VITALS: BP 106/69; PULSE 105; RESP 17; TEMP 36.8; O2SAT 99
[2021-10-31] MEDS: risperiDONE 1 MG TABLET PO ×2 (08:31→21:34)
--- NOTE | 2021-10-31 10:32 | PC.NURSE ---
PT rescinded 3-day notice 10/31/2021
--- NOTE | 2021-10-31 13:10 | HO.PSYCHPN ---
Subjective Subjective Date of Service: 10/31/21 Reason For Visit: Bipolar I d/o, current or most recent episode with Subjective Notes: Conditional Voluntary Interim History: Pt initially confused about reasons to stay few more days in hospital. However, after she met with this specification writer and CATHIE Fleming and agreed to stay as she notes her thoughts are more clear. Pt reports she has episodes of believing she still is in reality show but much less so. She reports sleeping better. She reports eating well. There is some delayed in reponses but thought process is mostly linear. Pt has been visible in the unit, social with select peers. She does report feeling unsettled by seeing other peers who are too sick. Review of Systems Review of Systems Yes all other systems are reviewed and are negative Mental Status Exam Mental Status Exam Narrative: Appearance: thin, casually groomed, fair hygiene in NAD Behavior:somewhat guarded psychomotor:no agitation or retardation noted Speech:clear, some delay in response rate, regular rhythm/ soft volume, spontaneous Thought process:mostly linear, no loose associations Thought content:no overt psychosis, worried about recent episode, confused but open to received treatment Mood: sleepy with ativan Affect: congruent, guarded SI:none HI:none VH/AH:appears internally preoccupied Delusions:no overt delusional content, but reports thinking she was in reality show and that mother making her look as she is sick to keep her longer in hospital Insight/judgment:improving x 2. Memory/cog: alert, oriented x 3. grossly intact to conversational testing but not formally tested. Diagnostics Vital Signs (24Hr): Vital Signs - 24 hr 10/31/21 21:01 11/01/21 08:17 Temperature 97.5 F 97.9 F Pulse Rate 99 100 Respiratory Rate 16 15 Blood Pressure 119/71 119/72 Pulse Oximetry 100 97 BMI result Body Mass Index 20.5 Imaging Radiology Impressions: ITS Impressions Head CT 10/25/21 14:36 IMPRESSION: Normal CT scan of the head. Medications Medications Current Medications Acetaminophen (Acetaminophen 325 Mg Tablet) 650 mg PO Q6H PRN PRN Reason: Headache/Pain Mild Scale (1-3) Last Admin: 10/25/21 21:13 Dose: 650 mg Documented by: Al Hydroxide/Mg Hydroxide (Magnesium Hydrox/Alum Hydrox 30 Ml Oral.Susp) 30 ml PO Q6H PRN PRN Reason: Heartburn/Nausea Hydroxyzine HCl (Hydroxyzine Hcl 25 Mg Tablet) 25 mg PO BEDTIME PRN PRN Reason: Anxiety Last Admin: 10/31/21 22:27 Dose: 25 mg Documented by: Lorazepam (Lorazepam 0.5 Mg Tablet) 0.5 mg PO Q6H PRN PRN Reason: Anxiety Last Admin: 10/31/21 22:27 Dose: 0.5 mg Documented by: Magnesium Hydroxide (Milk Of Magnesia 30 Ml Oral.Susp) 30 ml PO DAILY PRN PRN Reason: Constipation Nicotine Polacrilex (Nicotine Polacrilex 2 Mg Gum) 2 mg BUCCAL Q2H PRN PRN Reason: Nicotine Cravings Non-Formulary Medication (Culturelle) 1 tab-cap PO DAILY [facility] Last Admin: 11/01/21 08:38 Dose: Not Given Documented by: Nystatin (Nystatin Ointment 15 Gm Tube) 1 appl TOPICAL BID PRN; Protocol PRN Reason: Itching Last Admin: 10/30/21 20:34 Dose: 1 appl Documented by: Risperidone (Risperidone 1 Mg Tablet) 1 mg PO BID [facility] Last Admin: 11/01/21 08:37 Dose: 1 mg Documented by: Trazodone HCl (Trazodone Hcl 50 Mg Tablet) 50 mg PO BEDTIME PRN PRN Reason: Insomnia Last Admin: 10/31/21 21:38 Dose: 50 mg Documented by: Allergies Allergies Allergy/AdvReac Type Severity Reaction Status Date / Time No Known Allergies Allergy Unverified 10/24/21 21:10 Assessment & Plan Assessment & Plan (1) Psychosis: Status: Acute Code(s): F29 - Unspecified psychosis not due to a substance or known physiological condition Assessment and Plan: Ms. Howell is a 26 year-old woman without psychiatric hx who was brought to [facility] due to new onset of paranoid, grandiose delusions of being in reality show, being successful, not sleeping. Utox positive for cannabinoids. Differential diagnosis include first manic episode in Bipolar type 1 Disorder, cannabis induced psychosis or less likely pt recently dx with covid (some cases reported of post covid psychosis). We discussed risks, benefits and alternative treatment options. pt agreed to start low dose of risperidone. PLAN: 1. cv, 15 minutes 2. continue risperidone 1mg po BID. 3. coordination of care I spent minutes with the patient and/or on the patient floor today, greater than?50% of which was spent counseling/coordinating care. Reason for contiued inpatient stay Substantial Risk for: inability to function
[2021-10-31 21:01] VITALS: BP 119/71; PULSE 99; RESP 16; TEMP 36.4; O2SAT 100
--- NOTE | 2021-10-31 21:22 | PC.NURSE ---
PT signed a 3 day notice at 2100, MD and social workers notified
[2021-10-31] MEDS: traZODone HCL 50 MG TABLET PO (21:38)
[2021-10-31] MEDS: hydrOXYzine HCL 25 MG TABLET PO (22:27)
[2021-10-31] MEDS: LORazepam 0.5 MG TABLET PO (22:27)
[2021-11-01 08:17] VITALS: BP 119/72; PULSE 100; RESP 15; TEMP 36.6; O2SAT 97
[2021-11-01] MEDS: risperiDONE 1 MG TABLET PO ×2 (08:37→20:54)
[2021-11-01 09:28] VITALS: BMI 20.5
--- NOTE | 2021-11-01 15:14 | P.PNPSI_ITS ---
Subjective Subjective Date of Service: 11/01/21 Reason For Visit: Bipolar I d/o, current or most recent episode with Subjective Notes: Conditional Voluntary Interim History: Pt reports feeling more and more clear in her thinking. She reports last night she felt somewhat anxious and had prn ativan with good effect. She reports she slept well. She has attended some groups. She denies SI/HI. She hopes to go home tomorrow. Medication Compliance: Yes Side effects from medications: No Review of Systems Review of Systems Yes all other systems are reviewed and are negative Mental Status Exam Mental Status Exam Narrative: Appearance: thin, casually groomed, fair hygiene in NAD Behavior:somewhat guarded psychomotor:no agitation or retardation noted Speech:clear, some delay in response rate, regular rhythm/ soft volume, spontaneous Thought process:mostly linear, no loose associations Thought content:no overt psychosis, worried about recent episode, confused but open to received treatment Mood: sleepy with ativan Affect: congruent, guarded SI:none HI:none VH/AH:appears internally preoccupied Delusions:no overt delusional content, but reports thinking she was in reality show and that mother making her look as she is sick to keep her longer in hospital Insight/judgment:improving x 2. Memory/cog: alert, oriented x 3. grossly intact to conversational testing but not formally tested. Diagnostics Vital Signs (24Hr): Vital Signs - 24 hr 10/31/21 21:01 11/01/21 08:17 Temperature 97.5 F 97.9 F Pulse Rate 99 100 Respiratory Rate 16 15 Blood Pressure 119/71 119/72 Pulse Oximetry 100 97 BMI result Body Mass Index 20.5 Imaging Radiology Impressions: ITS Impressions Head CT 10/25/21 14:36 IMPRESSION: Normal CT scan of the head. Medications Medications Current Medications Acetaminophen (Acetaminophen 325 Mg Tablet) 650 mg PO Q6H PRN PRN Reason: Headache/Pain Mild Scale (1-3) Last Admin: 10/25/21 21:13 Dose: 650 mg Documented by: Al Hydroxide/Mg Hydroxide (Magnesium Hydrox/Alum Hydrox 30 Ml Oral.Susp) 30 ml PO Q6H PRN PRN Reason: Heartburn/Nausea Hydroxyzine HCl (Hydroxyzine Hcl 25 Mg Tablet) 25 mg PO BEDTIME PRN PRN Reason: Anxiety Last Admin: 10/31/21 22:27 Dose: 25 mg Documented by: Lorazepam (Lorazepam 0.5 Mg Tablet) 0.5 mg PO Q6H PRN PRN Reason: Anxiety Last Admin: 10/31/21 22:27 Dose: 0.5 mg Documented by: Magnesium Hydroxide (Milk Of Magnesia 30 Ml Oral.Susp) 30 ml PO DAILY PRN PRN Reason: Constipation Nicotine Polacrilex (Nicotine Polacrilex 2 Mg Gum) 2 mg BUCCAL Q2H PRN PRN Reason: Nicotine Cravings Non-Formulary Medication (Culturelle) 1 tab-cap PO DAILY [facility] Last Admin: 11/01/21 08:38 Dose: Not Given Documented by: Nystatin (Nystatin Ointment 15 Gm Tube) 1 appl TOPICAL BID PRN; Protocol PRN Reason: Itching Last Admin: 10/30/21 20:34 Dose: 1 appl Documented by: Risperidone (Risperidone 1 Mg Tablet) 1 mg PO BID [facility] Last Admin: 11/01/21 08:37 Dose: 1 mg Documented by: Trazodone HCl (Trazodone Hcl 50 Mg Tablet) 50 mg PO BEDTIME PRN PRN Reason: Insomnia Last Admin: 10/31/21 21:38 Dose: 50 mg Documented by: Allergies Allergies Allergy/AdvReac Type Severity Reaction Status Date / Time No Known Allergies Allergy Unverified 10/24/21 21:10 Assessment & Plan Assessment & Plan (1) Psychosis: Status: Acute Code(s): F29 - Unspecified psychosis not due to a substance or known physiological condition Assessment and Plan: Ms. Howell is a 26 year-old woman without psychiatric hx who was brought to [facility] due to new onset of paranoid, grandiose delusions of being in reality show, being successful, not sleeping. Utox positive for cannabinoids. Differential diagnosis include first manic episode in Bipolar type 1 Disorder, cannabis induced psychosis or less likely pt recently dx with covid (some cases reported of post covid psychosis). We discussed risks, benefits and alternative treatment options. pt agreed to start low dose of risperidone. PLAN: 1. cv, 15 minutes 2. continue risperidone 1mg po BID. 3. coordination of care I spent minutes with the patient and/or on the patient floor today, greater than?50% of which was spent counseling/coordinating care. Reason for contiued inpatient stay Substantial Risk for: inability to function
[2021-11-01 20:48] VITALS: BP 124/93; PULSE 92; RESP 18; TEMP 36.8; O2SAT 99
[2021-11-01] MEDS: traZODone HCL 50 MG TABLET PO (20:55)
[2021-11-01] MEDS: LORazepam 0.5 MG TABLET PO (21:36)
[2021-11-02] MEDS: Acetaminophen 325 MG TABLET 650 MG PO (01:45)
[2021-11-02 06:00] VITALS: BP 107/70; PULSE 90; RESP 18; TEMP 36.6; O2SAT 99
[2021-11-02] MEDS: risperiDONE 1 MG TABLET PO (08:51)
[2021-11-02] MEDS: LORazepam 0.5 MG TABLET PO (08:51)
--- NOTE | 2021-11-02 10:05 | HO.PSYADMNOT ---
HPI Chief Complaint: Bipolar I d/o, current or most recent episode with HPI Past Psychiatric History: Inpatient: none OP: therapist in [place] Past medication trials: ativan Suicide attempts: none [facility] Medical History (Updated 10/25/21 @ 13:58 by Marizol Navarro) Intestinal anastomosis present Psoriasis Family History: mother- depression Social History: Parents when pt was in middle school. Pt has younger brother. She moved to [place] for school back in 2012. She reports having close relationship with both parents. Not , no children. works as [employer]. Trauma History: reports multiple medical interventions due to ulcerative colitis was traumatic for her. Diagnostics Vital Signs (24Hr): Vital Signs - 24 hr 11/01/21 20:48 11/02/21 06:00 Temperature 98.2 F 97.9 F Pulse Rate 92 90 Respiratory Rate 18 18 Blood Pressure 124/93 H 107/70 Pulse Oximetry 99 99 BMI result Body Mass Index 20.5 Imaging Radiology Impressions: ITS Impressions Head CT 10/25/21 14:36 IMPRESSION: Normal CT scan of the head. Meds/Allergies Meds Home Medications Acetaminophen (Acetaminophen 325 Mg Tablet) 650 mg PO Q6H PRN PRN Reason: Headache/Pain Mild Scale (1-3) Last Admin: 11/02/21 01:45 Dose: 650 mg Documented by: Al Hydroxide/Mg Hydroxide (Magnesium Hydrox/Alum Hydrox 30 Ml Oral.Susp) 30 ml PO Q6H PRN PRN Reason: Heartburn/Nausea Hydroxyzine HCl (Hydroxyzine Hcl 25 Mg Tablet) 25 mg PO BEDTIME PRN PRN Reason: Anxiety Last Admin: 10/31/21 22:27 Dose: 25 mg Documented by: Lorazepam (Lorazepam 0.5 Mg Tablet) 0.5 mg PO Q6H PRN PRN Reason: Anxiety Last Admin: 11/02/21 08:51 Dose: 0.5 mg Documented by: Magnesium Hydroxide (Milk Of Magnesia 30 Ml Oral.Susp) 30 ml PO DAILY PRN PRN Reason: Constipation Nicotine Polacrilex (Nicotine Polacrilex 2 Mg Gum) 2 mg BUCCAL Q2H PRN PRN Reason: Nicotine Cravings Non-Formulary Medication (Culturelle) 1 tab-cap PO DAILY [facility] Last Admin: 11/02/21 10:01 Dose: Not Given Documented by: Nystatin (Nystatin Ointment 15 Gm Tube) 1 appl TOPICAL BID PRN; Protocol PRN Reason: Itching Last Admin: 10/30/21 20:34 Dose: 1 appl Documented by: Risperidone (Risperidone 1 Mg Tablet) 1 mg PO BID [facility] Last Admin: 11/02/21 08:51 Dose: 1 mg Documented by: Trazodone HCl (Trazodone Hcl 50 Mg Tablet) 50 mg PO BEDTIME PRN PRN Reason: Insomnia Last Admin: 11/01/21 20:55 Dose: 50 mg Documented by: Allergies Allergies Allergy/AdvReac Type Severity Reaction Status Date / Time No Known Allergies Allergy Unverified 10/24/21 21:10
--- NOTE | 2021-11-02 10:22 | P.DS_ITS ---
DS: Providers Provider Date of Service: 11/02/21 Date of admission: 10/24/21 20:42 Primary care physician: Unknown Physician Consults: 10/24/21 21:15 Consult to Hospitalist Routine Consulting Provider: Hospitalist Reason For Exam: direct admission DS: Diagnosis Discharge Diagnosis (1) Psychosis: Status: Acute DS: Medications Discharge Medications Home Medications: Previous Rx's Medication Instructions Recorded lorazepam 0.5 mg tablet (Ativan) 0.5 mg PO BID PRN #60 tab 11/02/21 risperidone 1 mg tablet 1 mg PO BID #60 tab 11/02/21 trazodone 50 mg tablet 50 mg PO BEDTIME PRN #30 tab 11/02/21 Mental Status Exam Mental Status Exam Narrative: Narrative:?Appearance: thin, casually groomed, fair hygiene in NAD Behavior:cooperative, calm psychomotor:no agitation or retardation noted Speech:clear, normal rate, regular rhythm/ soft volume, spontaneous Thought process:mostly linear, no loose associations Thought content:no overt psychosis, looking forward to see family Mood: better Affect: congruent, brighter, non labile SI:none HI:none VH/AH:denies Delusions:no overt delusional content Insight/judgment:improving x 2. Memory/cog: alert, oriented x 3. grossly intact to conversational testing but not formally tested. Data Data Completed and Pending Completed studies during hospitalization [Text1]: 10/25/21 10/25/21 10/25/21 15:31 15:31 15:31 C-React Prot High Sens 1.9 HA Screen NEGATIVE HA Titer TNP HA Titer 2 TNP HA Titer 3 TNP HA Pattern TNP HA Pattern 2 TNP HA Pattern 3 TNP Lyme Progressive Test TNP Imaging Diagnostic Imaging Impressions Head CT 10/25/21 14:36 IMPRESSION: Normal CT scan of the head. DS: Summary Hospital Course Hospital Course: Subjective Notes: Lemons Warning (understands) and 3 Day Narrative: Ms. Howell is a 26 year-old with no prior psychiatric hx other than anxiety who was brought to [facility] by her mother due to pt presenting as increasingly more disorganized, reporting some paranoid delusions towards family, not sleeping. Per [facility] records, pt presented as paranoid, did talk about reassuring others that Glory was not child molester, that she thought her family were against her. In the ED, her utox was positive for cannabis. All other labs including CBC, CMP were unremarkable. On the unit, pt presents as anxious, but much more organized than how she was described in ED. Pt reports she notes in past several weeks she had believed that she was in a reality show about success. She reports not sleeping thinking she could if she did. She reports most of memories of past weeks are very vague. She reports she was hearing voices but couldn't make what they were saying. Pt reports she came from [place], [place] 10/22 to visit family in [facility]. She states even before coming she was not sleeping well and was already thinking she was in a reality show. Pt currently denies AH/VH. She reports feeling confused about what is going on with her. Pt denies previous episode of psychosis. pt denies previous episodes of increased energy, decreased need for sleep, grandiose, psychosis or delusional thinking. She reports having hx of anxiety for which she is receiving outpatient psychotherapy. Pt denies hx of suicidal ideation or homicidal ideation. Per mother, no prior hx f psychosis. Mother reports changes in behavior for the past 2 weeks or more. Mother reports pt presented as paranoid towards family members, not sleeping, poor memory unable to recognize people she had met in past. Mother reports pt has gone through surgical procedures due to ulcerative colitis early on in her life which was difficult for pt. Mother reports that as far as she is aware no hx of suicide attempts. Past Psychiatric History: Inpatient: none OP: therapist in [place] Past medication trials: ativan Suicide attempts: none Medical Evaluation Reviewed: Hospitalist Roya Pending reviewed records sent from [facility]- including CBC (unremarkable), CMP (unremarkable), utox (positive for cannabinoids) pending hospitalist H&P. PMH of ulcerative colitis status post garcía colectomy w/j pouch/ HOSPITAL COURSE On the unit, Ms. Howell was admitted on a CV and placed on 15 minutes checks for safety. She was seen by psychiatric team daily. Pt reported thinking she was on reality show, suspicious of parents who she felt were trying to make her seen as if she was sick and in need of treatment when she was not. She reported decreased need for sleep. She did report not remembering much in terms of events leading to this admission. Given that this is first psychotic episode medical work up included: head CT, HA, syphilis/HIV, TSH, which all came back negative. She was positive on admission for cannabis. She also recently had covid. After discussing risks, benefits and alternative treatment options, pt agreed to start risperidone for psychosis and delusions. Risperidone was titrated to 1mg po BID, which pt tolerated without signs of EPS or other side effects. She was continued on low dose of ativan for anxiety, which she took mostly in evening. She gradually presented as less suspicious towards parents. She reports less episodes of thinking that she was in reality show. Her sleep gradually improved. Her conversations were increasingly more based on elements of reality. She denied suicidal or homicidal ideation throughout this admission. There were no incidences of disruptive behaviors nor use of restraint. Collateral information gathered from mother who reports pt mostly with history of anxiety. No prior hx of psychosis. At time of discharged, mother agreed that pt was in much improved condition and denied any safety concerns. Pt agreed to stay few week with mother in [place]. She will return to [place] where she will be connected with outpatient psychiatrist. We discussed with both mother and pt that possible etiologies for this episode include: first manic episode from Bipolar Disorder, versus cannabis induced psychosis or some reports of post covid psychosis. Status at Discharge Cognitive/behavioral status at discharge: Pt with brighter but non labile affect. She denies SI/HI. She denied VH/AH and did not appear internally preoccupied. Thought process organized and coherent. No signs of aggression towards self or others. Functional status at discharge: independent ambulation Overall status at discharge: patient is progressing back to baseline Time Spent with Patient Time attestation: Total time spent providing and/or coordinating discharge services: Time spent: Greater than 30 minutes Discharge Plan Discharge Patient Disposition: Home, Self-Care Discharge Diagnosis: psychosis nos, r/o bipolar disorder type 1 Referrals: Agustina Tomas (therapist) [Other] - 11/19/21 11:00 am (Telehealth appointment) [facility] [Other] - 3-5 Days (Referral submitted for an outpatient psychiatrist, please follow up in a few days to schedule appointment) [facility] Partial Hospitalization Program (PHP) [Other] - 3-5 Days (Referral submitted for PHP, they review within 24-48 hours. Please follow up to schedule intake appointment if you do not hear from them) Kali Maldonado MD [Physician] - 1 Week Physician,Unknown J [Primary Care Provider] - 1 Week Discharge Medications: New risperidone 1 mg Tablet 1 mg PO BID Qty: 60 RF: 0 lorazepam [Ativan] 0.5 mg tablet 0.5 mg PO BID PRN (Reason: anxiety) Qty: 60 RF: 0 trazodone 50 mg tablet 50 mg PO BEDTIME PRN (Reason: sleep) Qty: 30 RF: 0 Discharge Orders: Discharge Order (Routine); Ordered 11/02/21 Ordered By: Marizol Navarro Diet: regular diet Activity on Discharge: As tolerated Stand Alone Forms: Patient Portal Discharge page Care Plan Goals: Maintain mood No signs of psychosis No SI/HI Health Concerns: Follow up with PCP for routine care Plan of Treatment: 1. Take medications as prescribed 2. Go to nearest ED or call 911 in event of emergency Assessment: Much less organized, less psychosis, improved mood, No SI/HI. No signs of aggression towards self or others. Discharge Date/Time: 11/02/21 13:17
== END 2021-11-02 13:17 | disposition home or self-care (01) | DRG 751 ==
PROVIDERS: Admitting Provider Psychiatry & Neurology Psychiatry; Visit Provider Social Worker
DX: F29 Unspecified psychosis not due to a substance or known physiological condition (principal); Z79.899 Other long term (current) drug therapy
CPT/HCPCS: 36415; 70450; 80061; 82607; 82746; 83036; 84443; 85652; 86038; 86039; 86141; 86617; 86618; 86780